=== PATIENT | female | born 1990 | race African-American/Black ===

== ENCOUNTER 2017-08-04 17:05 | Emergency (ER) | payer MEDICAID, OTHER ==
[~2017-08-04] VITALS: Ht 165.1 cm; Wt 98.0 kg
[2017-08-04] MEDS ORDERED: tylenol (17:26)
[2017-08-04] MEDS ORDERED: KETOROLAC 60MG/2ML VIAL IM ONE (17:30)
[2017-08-04 19:54] VITALS: BP 137/69
[2017-08-04] MEDS ORDERED: DIAZEPAM 2 MG TABLET PO ONE (21:00)
== END 2017-08-04 21:31 | disposition home or self-care (01) ==
LOC: ER 18:45
DX: S16.1XXA Strain of muscle, fascia and tendon at neck level, initial encounter (principal); M54.89 Other dorsalgia; M25.512 Pain in left shoulder; R03.0 Elevated blood-pressure reading, without diagnosis of hypertension; V49.50XA Passenger injured in collision with unspecified motor vehicles in traffic accident, initial encounter; Y93.89 Activity, other specified; Y92.410 Unspecified street and highway as the place of occurrence of the external cause
CPT/HCPCS: 81025; 96372; 99283; J1885; A4565

== ENCOUNTER 2020-06-11 14:43 | Emergency (ER) | payer MEDICAID ==
[~2020-06-11] VITALS: Ht 165.1 cm; Wt 118.0 kg
[~2020-06-11 14:43] MED LIST: tylenol
[2020-06-11] MEDS ORDERED: ACETAMINOPHEN 325MG TABLET PO ONE (18:45)
[2020-06-11] MEDS ORDERED: LIDOCAINE HCL/PF 1% 10 MG/ML 5ML VIAL IJ ONE (18:45)
[2020-06-11] MEDS ORDERED: IBUP-2028 MT (19:48)
[2020-06-11] MEDS ORDERED: BACITRACIN ZINC OINT UDPKT TOP ONE (20:00)
[2020-06-11 20:43] VITALS: BP 145/85
== END 2020-06-11 20:40 | disposition home or self-care (01) ==
LOC: ER 14:43
DX: S63.696A Other sprain of right little finger, initial encounter (principal); R03.0 Elevated blood-pressure reading, without diagnosis of hypertension; Y04.2XXA Assault by strike against or bumped into by another person, initial encounter; Y93.89 Activity, other specified; Y92.480 Sidewalk as the place of occurrence of the external cause; Z59.0 Homelessness
CPT/HCPCS: 29130; 73140; 99283; J3490; Z7610

== ENCOUNTER 2022-07-11 14:06 | Emergency (ER) | payer MEDICAID ==
[~2022-07-11] VITALS: Ht 172.7 cm; Wt 80.0 kg
[~2022-07-11 14:06] MED LIST changes: +IBUP-2028 MT
[2022-07-11] MEDS ORDERED: MECL-159 MT (16:40)
[2022-07-11 17:00] LABS: BASOPHILS % 0.5 % (0.0-2.0); EOSINOPHILS % 1.6 % (0.0-5.0); HEMATOCRIT. 44.4 % (36.0-48.0); HEMOGLOBIN. 14.7 g/dL (12.0-16.0); LYMPHOCYTES % 42.2 % (20.0-50.0); MEAN CORPUSCULAR VOLUME 87.5 fL (81.0-99.0); MEAN PLATELET VOLUME 11.2 fl (7.4-10.4); MONOCYTES % 6.7 % (2.0-8.0); PLATELET 148 x1000/uL (130-400); RED BLOOD CELL COUNT 5.08 mill/uL (4.2-5.4); RED CELL DISTRIBUTION WIDTH 13.5 % (11.6-14.6)
[2022-07-11 17:04] LABS: CHLORIDE 108 mEq/L (98-107); HCG SCREEN NEGATIVE
[2022-07-11 18:19] LABS: CLARITY URINE CLEAR (CLEAR); COLOR URINE YELLOW (YELLOW); KETONES URINE NEGATIVE (NEGATIVE); LEUKOCYTE ESTERASE URINE NEGATIVE (NEGATIVE); NITRITE URINE NEGATIVE (NEGATIVE); OCCULT BLOOD URINE 2+ (NEGATIVE); PROTEIN URINE NEGATIVE (NEGATIVE); SPECIFIC GRAVITY URINE 1.019 (1.005-1.030); UROBILINOGEN URINE 0.2 E.U./dL (0.2-1.0)
[2022-07-11 18:26] VITALS: BP 135/87
== END 2022-07-11 18:30 | disposition home or self-care (01) ==
LOC: ER 14:06
DX: R42 Dizziness and giddiness (principal); Z98.890 Other specified postprocedural states
CPT/HCPCS: 36415; 80053; 81003; 81025; 84703; 85025; 99283

== ENCOUNTER 2023-10-12 17:05 | Emergency (ER) | payer MEDICAID ==
[~2023-10-12] VITALS: Ht 172.7 cm; Wt 105.0 kg
[~2023-10-12 17:05] MED LIST changes: +MECL-299 MT
[2023-10-12 17:15] VITALS: TEMP 98.6; O2SAT 98
[2023-10-12 18:32] VITALS: BP 130/81; PULSE 100; RESP 18
[2023-10-12] MEDS: KETOROLAC 30MG/ML VIAL IM STA (18:32)
== END 2023-10-12 18:35 | disposition home or self-care (01) ==
LOC: ER 17:05
DX: S46.911A Strain of unspecified muscle, fascia and tendon at shoulder and upper arm level, right arm, initial encounter (principal); X58.XXXA Exposure to other specified factors, initial encounter; Y93.89 Activity, other specified; Y92.89 Other specified places as the place of occurrence of the external cause; Y99.8 Other external cause status
CPT/HCPCS: 99284; 73030; 73060; 73070; 96372; J1885